=== PATIENT | male | born 1990 | race African-American/Black ===

== ENCOUNTER 2017-02-12 02:02 | Emergency (ER) | payer OTHER ==
[2017-02-12 02:55] LABS: IRF 0.456 Ratio (0.163-0.362); Reticulocyte Count 21.2 % (0.5-1.5)
[2017-02-12 03:10] LABS: Anisocytosis MODERATE=16-30 cells (100X) (0-5/hpf); Band 6 % (5-11); Mean Platelet Volume 7.4 fL (7.4-10.4); Neutrophil 58 % (42-75); Nucleated RBC 4 % (0); Polychromasia SLIGHT = 2-3 cells (100X) (0-2/hpf); Red Blood Cell (RBC) Count 2.61 mill/uL (4.70-6.10); Sickle Cells MODERATE= 6-15 cells (100X) (None Seen); Spherocytes SLIGHT = 1-5 cells (100X) (None Seen); White Blood Cell (WBC) Count 18.8 thou/uL (4.8-10.8)
[2017-02-12 03:12] LABS: ALT (SGPT) 12 U/L (8-55); AST (SGOT) 26 U/L (5-34); Alkaline Phosphatase 90 U/L (40-150); Anion Gap 12 mmol/L (10-20); BUN (Urea Nitrogen) 7 mg/dL (8.9-20.6); Bilirubin, Total 4.7 mg/dL (0.2-1.2); Calc. Creatinine Clearance 0 mL/min (70-130); Carbon Dioxide 22 mmol/L (22-29); Chloride 109 mmol/L (98-107); Estimated GFR-MDRD Greater than 90; Globulin 3.3 g/dL (2.4-3.5); Protein, Total 7.3 g/dL (6.0-8.3)
[2017-02-12] MEDS ORDERED: Ketorolac Tromethamine 30 MG/ML VIAL ONE (03:57)
== END 2017-02-12 05:50 | disposition home or self-care (01) ==
LOC: ERS 02:02
DX: D57.00 Hb-SS disease with crisis, unspecified (principal); Z79.899 Other long term (current) drug therapy
CPT/HCPCS: 36415; 80053; 85025; 85046; 96361; 96374; J1885

== ENCOUNTER 2017-02-26 14:20 | Emergency (ER) | payer OTHER ==
[2017-02-26] MEDS ORDERED: Ketorolac Tromethamine 30 MG/ML VIAL ONE (17:32)
[2017-02-26 17:41] LABS: IRF 0.407 Ratio (0.163-0.362); Reticulocyte Count 15.6 % (0.5-1.5)
[2017-02-26 17:55] LABS: Anisocytosis MODERATE=16-30 cells (100X) (0-5/hpf); Band 3 % (5-11); Elliptocytes SLIGHT = 2-5 cells (100X) (0-1/hpf); Howell Jolly Bodies SLIGHT = 1-2 cells (100X) (None Seen); Mean Platelet Volume 7.9 fL (7.4-10.4); Neutrophil 70 % (42-75); Nucleated RBC 3 % (0); Ovalocytes SLIGHT = 2-5 cells (100X) (0-1/hpf); Poikilocytosis MODERATE=16-30 cells (100X) (0-5/hpf); Polychromasia MODERATE = 3-4 cells (100X) (0-2/hpf); Red Blood Cell (RBC) Count 2.54 mill/uL (4.70-6.10); Sickle Cells SLIGHT = 1-5 cells (100X) (None Seen); Target Cells SLIGHT = 2-5 cells (100X) (0-1/hpf); Tear Drops SLIGHT = 2-5 cells (100X) (0-1/hpf); White Blood Cell (WBC) Count 23.4 thou/uL (4.8-10.8)
[2017-02-26 17:59] LABS: ALT (SGPT) 35 U/L (8-55); AST (SGOT) 42 U/L (5-34); Alkaline Phosphatase 79 U/L (40-150); Anion Gap 13 mmol/L (10-20); BUN (Urea Nitrogen) 7 mg/dL (8.9-20.6); Bilirubin, Total 6.6 mg/dL (0.2-1.2); Calc. Creatinine Clearance 0 mL/min (70-130); Calcium 9.2 mg/dL (7.8-10.44); Carbon Dioxide 21 mmol/L (22-29); Chloride 108 mmol/L (98-107); Estimated GFR-MDRD Greater than 90; Globulin 3.4 g/dL (2.4-3.5); Protein, Total 7.4 g/dL (6.0-8.3)
[2017-02-26] MEDS ORDERED: Morphine 4 MG/ML VIAL ONE (19:20)
--- NOTE | 2017-02-26 20:39 | RAD ---
TWO VIEWS CHEST 02/26/17 HISTORY: Sickle cell crisis. PA and lateral views of the chest is obtained on 02/26/17. Comparison made to previous exam from 05/15/16. Two views chest demonstrates the lungs to be well aerated. No evidence of active intrathoracic diseas e is seen. No evidence of effusions, pneumonia or pneumothorax seen. IMPRESSION: Normal two views chest. POS: [facility]
== END 2017-02-26 19:28 | disposition home or self-care (01) ==
LOC: ERS 14:20
DX: D57.00 Hb-SS disease with crisis, unspecified (principal)
CPT/HCPCS: 36415; 71020; 80053; 85025; 85046; 96361; 96374; 96375; J1885; J2270

== ENCOUNTER 2017-05-07 04:11 | Emergency (ER) | payer OTHER ==
[2017-05-07 04:56] LABS: Hemoglobin 9.2 g/dL (14.0-18.0); Mean Corpuscular HGB CONC 35.1 g/dL (32.0-36.0); Mean Corpuscular Hemoglobin 34.9 pg (27.0-31.0); Mean Corpuscular Volume 99.3 fl (80.0-94.0); Platelet Count 341 thou/uL (130-400); RBC Distribution Width 19.8 % (11.5-14.5); Red Blood Cell (RBC) Count 2.65 mill/uL (4.70-6.10); Reticulocyte Count 15.8 % (0.5-1.5); White Blood Cell (WBC) Count 18.5 thou/uL (4.8-10.8)
[2017-05-07] MEDS ORDERED: Ketorolac Tromethamine 30 MG/ML VIAL ONE (05:02)
[2017-05-07 05:13] LABS: ALT (SGPT) 18 U/L (8-55); AST (SGOT) 30 U/L (5-34); Albumin 4.1 g/dL (3.5-5.0); Alkaline Phosphatase 74 U/L (40-150); Anion Gap 10 mmol/L (10-20); BUN (Urea Nitrogen) 7 mg/dL (8.9-20.6); Bilirubin, Total 5.9 mg/dL (0.2-1.2); CK (CPK) 68 U/L (30-200); Calc. Creatinine Clearance 0 mL/min (70-130); Carbon Dioxide 25 mmol/L (22-29); Chloride 107 mmol/L (98-107); Estimated GFR-MDRD Greater than 90; Globulin 2.9 g/dL (2.4-3.5); Glucose 89 mg/dL (70-105); Potassium 4.4 mmol/L (3.5-5.1); Sodium 138 mmol/L (136-145)
[2017-05-07 05:23] LABS: Anisocytosis MODERATE=16-30 cells (100X) (0-5/hpf); Band 5 % (5-11); Eosinophils 5 % (0-10); Lymphocytes 14 % (21-51); MDiff Complete? YES; Metamyelocyte 2 % (0-0); Monocytes 16 % (0-10); Neutrophil 58 % (42-75); Nucleated RBC 13 % (0); PLT Morphology Comment Appears Adequate; Polychromasia MODERATE = 3-4 cells (100X) (0-2/hpf); Reflex for Review?? YES; Schistocytes SLIGHT = 2-5 cells (100X) (0-1/hpf); Sickle Cells MODERATE= 6-15 cells (100X) (None Seen); Spherocytes SLIGHT = 1-5 cells (100X) (None Seen)
--- NOTE | 2017-05-07 07:47 | RAD ---
ACUTE ABDOMINAL SERIES: DATE: 05/07/17. PROVIDED CLINICAL HISTORY: Back pain. FINDINGS: Comparison is made with the study dated 02/26/17. Cardiac and mediastinal silhouette is within frank l limits. Lungs appear clear. No pleural fluid or pneumothorax apparent. Supine and upright abdominal radiographs demonstrate a nonspecific bowel gas pattern. No evidence of pneumoperitoneum. Rounded radiodensity overlies the right upper quadrant compatible with gallstone, appearing similar to the lumbar spine radiographs of 06/07/16. No radiographically apparent urinary tract calculi. IMPRESSION: 1. No evidence for an acute cardiopulmonary process. 2. Nonspecific bowel gas pattern. POS: [facility]
== END 2017-05-07 07:45 | disposition home or self-care (01) ==
LOC: ERS 04:11
DX: D57.00 Hb-SS disease with crisis, unspecified (principal)
CPT/HCPCS: 36415; 74022; 80053; 82550; 85025; 85046; 85060; 96361; 96374; J1885

== ENCOUNTER 2017-07-07 04:06 | Emergency (ER) | payer OTHER ==
[2017-07-07] MEDS ORDERED: Ibuprofen 800 MG TAB ONE (04:21)
[2017-07-07 05:11] LABS: Bilirubin Negative (Negative); Blood, Urine Negative (Negative); Clarity CLEAR (Clear); Glucose, Urine (Dipstick) Negative (Negative); Leukocyte Trace (Negative); Nitrite Negative (Negative); Protein, Urine (Dipstick) Negative (Neg-Trace); Specific Gravity, Urine 1.014 (1.002-1.036)
[2017-07-07 05:14] LABS: Bacteria/HPF None Seen HPF (None Seen); Hyaline Casts/LPF 0-3 HYALINE CAST LPF (0-3 Hyaline); Pathc Cast-AUWi Flag 0.14 (0-2.49); RBC/HPF 0-3 HPF (0-3); Squamous Epithelial None Seen HPF (0-3)
== END 2017-07-07 05:51 | disposition home or self-care (01) ==
LOC: ERS 04:06
DX: N39.0 Urinary tract infection, site not specified (principal); D57.00 Hb-SS disease with crisis, unspecified
CPT/HCPCS: 81003; 81015; 99283

== ENCOUNTER 2017-10-11 08:29 | Emergency (ER) | payer OTHER ==
[2017-10-11] MEDS ORDERED: Ketorolac Tromethamine 30 MG/ML VIAL ONE (09:03)
[2017-10-11 09:57] LABS: ALT (SGPT) 9 U/L (8-55); AST (SGOT) 32 U/L (5-34); Albumin 4.5 g/dL (3.5-5.0); Alkaline Phosphatase 90 U/L (40-150); Anion Gap 11 mmol/L (10-20); BUN (Urea Nitrogen) 8 mg/dL (8.9-20.6); Calc. Creatinine Clearance 0 mL/min (70-130); Calcium 9.3 mg/dL (7.8-10.44); Carbon Dioxide 25 mmol/L (22-29); Chloride 108 mmol/L (98-107); Estimated GFR-MDRD Greater than 90; Glucose 84 mg/dL (70-105); Potassium 4.7 mmol/L (3.5-5.1); Protein, Total 7.5 g/dL (6.0-8.3); Sodium 139 mmol/L (136-145)
[2017-10-11 10:18] LABS: Eosinophils 8 % (0-10); Hemoglobin 9.7 g/dL (14.0-18.0); Hypochromia SLIGHT = 6-15 cells (100X) (0-5/hpf); Lymphocytes 24 % (21-51); MDiff Complete? YES; Mean Corpuscular HGB CONC 34.5 g/dL (32.0-36.0); Mean Corpuscular Hemoglobin 32.7 pg (27.0-31.0); Mean Corpuscular Volume 94.9 fL (78.0-98.0); Monocytes 12 % (0-10); Neutrophil 54 % (42-75); Platelet Count 517 thou/uL (130-400); Polychromasia SLIGHT = 2-3 cells (100X) (0-2/hpf); RBC Distribution Width 18.5 % (11.5-14.5); Reactive Lymphocytes 2 % (0-10); Red Blood Cell (RBC) Count 2.96 mill/uL (4.70-6.10); White Blood Cell (WBC) Count 11.1 thou/uL (4.8-10.8)
[2017-10-11 10:19] LABS: Reticulocyte Count 7.8 % (0.5-1.5)
--- NOTE | 2017-10-11 11:15 | RAD ---
CHEST 1 VIEW: HISTORY: A 27-year-old male with a history of chest pain, known sickle cell disease. FINDINGS: Heart size is upper range of normal. No evidence for confluent pneumonia, overt edema, or pleural ef fusion. There is some minimal bony sclerosis, evidence for known sickle cell disease. IMPRESSION: Borderline cardiomegaly. No significant acute intrathoracic disease. Stable from prior study of 08/14 05/30. Additionally, no significant change from 05/07/17 study. POS: [facility]
== END 2017-10-11 10:41 | disposition home or self-care (01) ==
LOC: ERS 08:29
DX: M25.511 Pain in right shoulder (principal); M25.512 Pain in left shoulder; Z79.899 Other long term (current) drug therapy
CPT/HCPCS: 71045; 80053; 85025; 85046; 93005; 94760; 96361; 96374; J1885

== ENCOUNTER 2018-04-30 09:50 | Emergency (ER) | payer OTHER | END 2018-04-30 10:50 | disposition left against medical advice (07) | LOC: ERS 09:50 | DX: Z53.21 Procedure and treatment not carried out due to patient leaving prior to being seen by health care provider (principal) ==

== ENCOUNTER 2018-05-24 19:02 | Emergency (ER) | payer OTHER, SELFPAY ==
[2018-05-24] MEDS ORDERED: Ketorolac Tromethamine 60 MG/2 ML VIAL ONE (20:31)
--- NOTE | 2018-05-24 22:44 | RAD ---
THREE VIEWS RIGHT SHOULDER: Date: 05-24-18 History: Right shoulder pain. FINDINGS: The coracoclavicular and acromioclavicular distances are within normal limits. No fracture or disloca tion seen. There is a curvilinear area of sclerosis in the region of the right humeral head probably related to trabecular pattern. No other findings. IMPRESSION: No acute osseous abnormality right shoulder. POS: [facility]
== END 2018-05-24 21:12 | disposition home or self-care (01) ==
LOC: ERS 19:02
DX: M25.512 Pain in left shoulder (principal); D57.1 Sickle-cell disease without crisis; F31.9 Bipolar disorder, unspecified; F20.9 Schizophrenia, unspecified; Z79.899 Other long term (current) drug therapy
CPT/HCPCS: 96372; J1885

== ENCOUNTER 2018-06-02 08:02 | Emergency (ER) | payer SELFPAY ==
[2018-06-02] MEDS ORDERED: Fentanyl 100 MCG/2 ML VIAL ONE (08:57)
[2018-06-02] MEDS ORDERED: Lidocaine 1% (PF) 30 ML VIAL ONE (09:42)
[2018-06-02] MEDS ORDERED: PHENYLEPHRINE HCL SC SCH ×2 (10:00→10:15)
[2018-06-02] MEDS ORDERED: Phenylephrine HCL 10 MG/ML VIAL SC SCH (10:00)
[2018-06-02] MEDS ORDERED: SODIUM CHLORIDE 0.9% SC SCH ×2 (10:00→10:15)
[2018-06-02] MEDS ORDERED: Morphine 4 MG/ML VIAL ONE (10:30)
--- NOTE | 2018-06-03 21:39 | CON ---
DATE OF CONSULTATION: 06/02/2018 CONSULTING: Emergency room. REASON FOR CONSULTATION: Priapism. HISTORY OF PRESENT ILLNESS: Jerardo is a 27-year-old black male whom I have seen in the past for priapisms, who presents to the emergency room today with another episode of priapism. He has a history of sickle cell disease and has had issues with priapisms before. He generally does not get them that often, but occasionally states he will get one approximately once every few years. This morning, he woke up with an erection and it would not go away. Despite trying multiple measures at home, the erection persisted for more than 4 hours and having experienced this before, he knew he needed to come to the emergency room at which time, he has presented to the ER. He states no difficulty with urination or hematuria. He is having a little bit of pain in one of his arms, but otherwise states he is not having any type of pain crisis anywhere else. He does not note being dehydrated or having any other problems recently including shortness of breath. He just has the isolated priapism. He does not take any Viagra or erectile dysfunction medications and states that he has not used any illicit drugs. PAST MEDICAL HISTORY: Sickle cell disease. PAST SURGICAL HISTORY: None. ALLERGIES: PENICILLIN. HOME MEDICATIONS: 1. Morphine. 2. Hydroxyurea. 3. Zofran. FAMILY HISTORY: Negative for heart disease, but there are other reported extended family members who potentially either have sickle cell trait or sickle cell disease. SOCIAL HISTORY: The patient denies tobacco use. Does use marijuana on occasion. Denies alcohol abuse. REVIEW OF SYSTEMS: A 12-point review of systems is entirely negative other than the patient's reported left arm pain, which is mild and his priapism. PHYSICAL EXAMINATION: VITAL SIGNS: Temperature 97.8, pulse 68, respirations 18, blood pressure 121/74, saturations 95% on room air. GENERAL: No apparent distress, communicative, answering questions appropriately. Appears stated age. HEENT: Normocephalic, atraumatic. Pupils are symmetric and round. Sclerae are nonicteric. Moist mucous membranes. Trachea is midline. CARDIOVASCULAR: Regular rate and rhythm. Normal S1 and S2. Symmetric pulses. CHEST: No increased work of breathing. Symmetric expansion of lungs, clear anteriorly. ABDOMEN: Soft, nontender, and nondistended. No organomegaly. Positive bowel sounds. No guarding or suprapubic tenderness. : The patient has an erect penis. The glans is flaccid, but the corpora hard. There is tenderness along the entire corpora. There are no rashes or lesions. Testes are bilaterally descended. Scrotum is otherwise nonfocal. Rectal exam is deferred. EXTREMITIES: No clubbing, cyanosis, or edema. MUSCULOSKELETAL: No obvious joint deformities or joint erythema noted. Full range of motion. NEUROLOGIC: Cranial nerves 2 through 12 grossly intact. No focal or sensory motor deficits identified. SKIN: Warm and dry. No rashes, lesions. Good turgor. PSYCHIATRIC: Alert and oriented x3. Appropriate mood and affect. LABORATORY DATA: No labs. IMAGING: No imaging. DESCRIPTION OF PROCEDURE: After consent with the patient, the patient's penis was prepped with a ChloraPrep. A circumferential ring block was performed with 8 mL of 1% lidocaine plain. Injection was also done down to the corpus cavernosum of the area where we would insert the needle. A 14-gauge needle was inserted on the lateral right aspect of the penis toward the base until it was centered approximately in the middle of the corpus cavernosum on the right. The needle was removed leaving the Jelco catheter in place. There was immediate release of pressurized dark venous blood. There was immediate detumescence. The penis was compressed to completely drain all of the blood out of the penis. The corpora were then irrigated with approximately 15 mL of normal saline done in about 5 mL increments squeezing out the saline and blood intermittently until the blood was again bright red indicating that all the venous blood had been removed. At this point, approximately 4 mL total of 1% phenylephrine diluted 1:10 for a final concentration of 1:200 was used in 1 mL increments administered over to the course of approximately 15-20 minutes while monitoring blood pressure for vasoconstriction of the central penile arteries. This resulted in complete detumescence of the penis. The Jelco catheter was then removed and the penis was dressed and taped down to the patient's abdomen in the anatomic position. I recommended the patient wait for approximately 1-2 hours to ensure that he did not have a recurrence of an erection. Unfortunately, the patient left AMA while I was not present. ASSESSMENT AND PLAN: A 27-year-old black male with a sickle cell induced priapism, who has left [place] after his corporal irrigation and detumescence. He did have a complete resolution of his priapism at the time that I had last seen him, but I was not able to check his erection prior to him leaving [place]. He does not have any scheduled followup with me, but probably does not require followup as he does not get priapisms very often. Prior to him leaving, I did recommend and advised him that he should stay well hydrated to avoid worsening sickle cell episodes that may lead to further priapisms. I also warned him that recurrent episodes of priapism can lead to erectile dysfunction, which he is fully aware of. As of now, he can follow up with me on a p.r.n. basis. Job ID: [id number]
== END 2018-06-02 12:04 | disposition left against medical advice (07) ==
LOC: ERS 08:02
DX: N48.30 Priapism, unspecified (principal); F31.9 Bipolar disorder, unspecified; F20.9 Schizophrenia, unspecified; D57.20 Sickle-cell/Hb-C disease without crisis; Z79.899 Other long term (current) drug therapy
CPT/HCPCS: 54220; 96361; 96374; 96375; J2001; J2270; J2370; J3010; J7050

== ENCOUNTER 2018-07-19 01:14 | Emergency (ER) | payer OTHER, SELFPAY ==
[2018-07-19 02:00] LABS: Reticulocyte Count 16.9 % (0.5-1.5)
[2018-07-19 02:06] LABS: Mean Corpuscular HGB CONC 34.6 g/dL (32.0-36.0); Mean Corpuscular Hemoglobin 31.3 pg (27.0-31.0); Mean Corpuscular Volume 90.4 fL (78.0-98.0); Mean Platelet Volume 7.9 fL (7.4-10.4); Platelet Count 403 thou/uL (130-400); RBC Distribution Width 21.5 % (11.5-14.5); Red Blood Cell (RBC) Count 2.24 mill/uL (4.70-6.10)
[2018-07-19] MEDS ORDERED: Acetaminophen 500 MG TAB ONE (02:08)
[2018-07-19 02:22] LABS: ALT (SGPT) 12 U/L (8-55); AST (SGOT) 23 U/L (5-34); Albumin 4.2 g/dL (3.5-5.0); Alkaline Phosphatase 86 U/L (40-150); Anion Gap 13 mmol/L (10-20); BUN (Urea Nitrogen) 13 mg/dL (8.9-20.6); Bilirubin, Total 4.8 mg/dL (0.2-1.2); Calc. Creatinine Clearance 0 mL/min (70-130); Calcium 9.2 mg/dL (7.8-10.44); Carbon Dioxide 24 mmol/L (22-29); Chloride 102 mmol/L (98-107); Estimated GFR-MDRD Greater than 90; Globulin 2.9 g/dL (2.4-3.5); Glucose 117 mg/dL (70-105); Protein, Total 7.1 g/dL (6.0-8.3); Sodium 135 mmol/L (136-145)
[2018-07-19 02:32] LABS: Band 7 % (5-11); Hypochromia SLIGHT = 6-15 cells (100X) (0-5/hpf); Lymphocytes 10 % (21-51); MDiff Complete? YES; Monocytes 9 % (0-10); Neutrophil 74 % (42-75); Platelet Morphology Comment Appears Adequate; Polychromasia SLIGHT = 2-3 cells (100X) (0-2/hpf); Sickle Cells SLIGHT = 1-5 cells (100X) (None Seen); Target Cells SLIGHT = 2-5 cells (100X) (0-1/hpf); White Blood Cell (WBC) Count 23.6 thou/uL (4.8-10.8)
--- NOTE | 2018-07-19 07:43 | RAD ---
Left knee 4 views HISTORY: Knee pain. FINDINGS: Joint spaces are preserved. No acute fracture, dislocation, or fluid distention of the supr apatellar bursa. IMPRESSION: No acute osseous abnormalities are demonstrated.
--- NOTE | 2018-07-19 07:43 | RAD ---
Right knee 4 views HISTORY: Right knee pain. FINDINGS: Joint spaces are preserved. No acute fracture, dislocation, or fluid distention of the supr apatellar bursa. IMPRESSION: No acute osseous abnormalities are demonstrated.
== END 2018-07-19 03:03 | disposition home or self-care (01) ==
LOC: ERS 01:14
DX: M25.561 Pain in right knee (principal); M25.562 Pain in left knee; D64.9 Anemia, unspecified; D72.829 Elevated white blood cell count, unspecified; F31.9 Bipolar disorder, unspecified; F20.9 Schizophrenia, unspecified; Z79.899 Other long term (current) drug therapy
CPT/HCPCS: 36415; 80053; 85025; 85046; 94760

== ENCOUNTER 2019-06-23 02:04 | Emergency (ER) | payer SELFPAY ==
[2019-06-23] MEDS ORDERED: Morphine 2 MG/ML SYRINGE ONE (04:09)
[2019-06-23] MEDS ORDERED: Morphine 4 MG/ML VIAL ONE (04:10)
[2019-06-23] MEDS ORDERED: Ketorolac Tromethamine 30 MG/ML VIAL ONE ×2 (04:10→04:51)
[2019-06-23 04:44] LABS: Band 1 % (5-11); Eosinophils 7 % (0-10); Lymphocytes 25 % (21-51); MDiff Complete? YES; Mean Corpuscular HGB CONC 35.8 g/dL (32.0-36.0); Mean Corpuscular Hemoglobin 37.5 pg (27.0-31.0); Mean Platelet Volume 8.1 fL (7.4-10.4); Monocytes 10 % (0-10); Neutrophil 57 % (42-75); Nucleated RBC 1 % (0); Platelet Count 304 thou/uL (130-400); Platelet Morphology Comment Appears Adequate; RBC Distribution Width 19.9 % (11.5-14.5); Red Blood Cell (RBC) Count 2.65 mill/uL (4.70-6.10); Reflex for Review?? NO; Sickle Cells MODERATE= 6-15 cells (100X) (None Seen); White Blood Cell (WBC) Count 31.3 thou/uL (4.8-10.8)
[2019-06-23 04:47] LABS: ALT (SGPT) 10 U/L (8-55); AST (SGOT) 22 U/L (5-34); Albumin 3.9 g/dL (3.5-5.0); Alkaline Phosphatase 65 U/L (40-110); Anion Gap 9 mmol/L (10-20); BUN (Urea Nitrogen) 6 mg/dL (8.9-20.6); Bilirubin, Total 6.6 mg/dL (0.2-1.2); Calc. Creatinine Clearance 0 mL/min (70-130); Calcium 8.5 mg/dL (7.8-10.44); Carbon Dioxide 25 mmol/L (22-29); Chloride 108 mmol/L (98-107); Estimated GFR-MDRD Greater than 90; Globulin 2.8 g/dL (2.4-3.5); Glucose 89 mg/dL (70-105); Lipase 14 U/L (8-78); Potassium 3.4 mmol/L (3.5-5.1); Protein, Total 6.7 g/dL (6.0-8.3); Sodium 139 mmol/L (136-145)
[2019-06-23] MEDS ORDERED: Acetaminophen 500 MG TAB ONE ×2 (04:51→04:56)
[2019-06-23 04:59] LABS: Bilirubin Negative (Negative); Blood, Urine Negative (Negative); Clarity Clear (Clear); Glucose, Urine (Dipstick) Normal (Negative); Leukocyte Negative Leu/uL (Negative); Nitrite Negative (Negative); Protein, Urine (Dipstick) 10 mg/dL (Neg-Trace); Urobilinogen 3 mg/dL (Less than 2)
[2019-06-23 05:09] LABS: Reticulocyte Count 14.1 % (0.5-1.5)
[2019-06-23 05:26] LABS: Bilirubin, Direct 0.5 mg/dL (0.1-0.3); Bilirubin, Total 6.5 mg/dL (0.2-1.2)
== END 2019-06-23 06:49 | disposition home or self-care (01) ==
LOC: ERS 02:04
DX: D57.00 Hb-SS disease with crisis, unspecified (principal); M79.652 Pain in left thigh; M79.651 Pain in right thigh; E80.6 Other disorders of bilirubin metabolism; F31.9 Bipolar disorder, unspecified; F20.9 Schizophrenia, unspecified; Z79.899 Other long term (current) drug therapy
CPT/HCPCS: 36415; 80053; 81003; 82247; 83690; 85025; 85046; 96360; 96372; J1885; J2270

== ENCOUNTER 2019-07-08 23:14 | Observation (INO) | payer SELFPAY ==
[2019-07-08] MEDS ORDERED: HYDROcodone/Acetaminophen 5/325 mg Tablet ONE (23:36)
--- NOTE | 2019-07-08 23:54 | RAD ---
Exam: Chest one view HISTORY:Unbearable pain. Comparison: 11/01/2017 FINDINGS: Cardiac silhouette:Cardiomegaly. Aorta: Unremarkable Pulmonary vessels: Normal Costophrenic angles: Clear LUNGS: No masses or consolidation. Pneumothorax: None Osseous abnormalities: None IMPRESSION: Cardiomegaly, without evidence of congestive heart failure.
[2019-07-09 00:15] LABS: Hemoglobin 10.8 g/dL (14.0-18.0); Mean Corpuscular HGB CONC 34.8 g/dL (32.0-36.0); Mean Corpuscular Hemoglobin 35.3 pg (27.0-31.0); RBC Distribution Width 20.1 % (11.5-14.5); Red Blood Cell (RBC) Count 3.07 mill/uL (4.70-6.10)
[2019-07-09 00:19] LABS: ALT (SGPT) 14 U/L (8-55); AST (SGOT) 25 U/L (5-34); Albumin 4.3 g/dL (3.5-5.0); Alkaline Phosphatase 88 U/L (40-110); Anion Gap 13 mmol/L (10-20); BUN (Urea Nitrogen) 8 mg/dL (8.9-20.6); Bilirubin, Total 5.6 mg/dL (0.2-1.2); Calc. Creatinine Clearance 0 mL/min (70-130); Carbon Dioxide 24 mmol/L (22-29); Chloride 108 mmol/L (98-107); Estimated GFR-MDRD Greater than 90; Globulin 3.2 g/dL (2.4-3.5); Glucose 98 mg/dL (70-105); Potassium 3.9 mmol/L (3.5-5.1); Protein, Total 7.5 g/dL (6.0-8.3); Sodium 141 mmol/L (136-145)
[2019-07-09 00:21] LABS: Anisocytosis MODERATE=16-30 cells (100X) (0-5/hpf); Band 4 % (5-11); Elliptocytes SLIGHT = 2-5 cells (100X) (0-1/hpf); Eosinophils 1 % (0-10); Lymphocytes 21 % (21-51); MDiff Complete? YES; Mean Platelet Volume 7.8 fL (7.4-10.4); Monocytes 11 % (0-10); Neutrophil 63 % (42-75); Platelet Count 394 thou/uL (130-400); Sickle Cells SLIGHT = 1-5 cells (100X) (None Seen); White Blood Cell (WBC) Count 20.7 thou/uL (4.8-10.8)
[2019-07-09] MEDS ORDERED: Morphine 4 MG/ML VIAL ONE ×2 (00:22→00:54)
[2019-07-09] MEDS ORDERED: Ketorolac Tromethamine 30 MG/ML VIAL ONE (00:27)
[2019-07-09] MEDS ORDERED: Ondansetron PF 4 MG/2 ML Vial IVP PRN ×2 (02:37→02:48)
[2019-07-09] MEDS ORDERED: Acetaminophen 325 MG TAB PO PRN ×2 (02:37→02:48)
[2019-07-09] MEDS ORDERED: Ondansetron ODT 4 MG TAB PO PRN (02:37)
--- NOTE | 2019-07-09 02:46 | PDOC.HHP ---
Hospitalist HPI - History of Present Illness pain History of Present Illness: Case of an 28y/o male with pmhx of sickle cell disease who comes to hospital due to pain. patient refers he was on his usual state of heatlh until 3 weeks ago when she started to have body pains. he had couple of ed visit in these last weeks with same symptoms but refers today has been the worse day refering 10/10 pain in the back and abdomen associated with nause but no vomiting. pt denies fever chills sob or hematuria. does refers similar episode in the past with sickle cell crisis Hospitalist ROS - Review of Systems All other systems reviewed; all pertinent +/- noted in HPI/Subj Hospitalist History - Past Medical History Other Medical History: sickle cell disease - Past Surgical History Past Surgical History: reports: no pertinent history - Family History Other Family History: mother - sickle cell trait father - sickle cell trait - Social History Smoking Status: Never smoker Alcohol: reports: None Drugs: reports: none Living Situation: With Family Activity level: independent ambulation - Exam General Appearance: awake alert Eye: PERRL, anicteric sclera ENT: normocephalic atraumatic, no oropharyngeal lesions Neck: supple, symmetric, no JVD Heart: RRR, no murmur, no gallops, no rubs Respiratory: CTAB, no wheezes, no rales, no ronchi Gastrointestinal: soft, non-tender, non-distended, normal bowel sounds Extremities: no cyanosis, no clubbing, no edema Skin: normal turgor, no lesions, no rashes Neurological: cranial nerve grossly intact, normal sensation to touch, no weakness Musculoskeletal: normal tone, normal strength, no muscle wasting Psychiatric: normal affect, normal behavior, A&O x 3 Hospitalist Results - Labs Result Diagrams: 07/08/19 23:46 07/08/19 23:46 Lab results: WBC 20.7 thou/uL (4.8-10.8) H 07/08/19 23:46 Hgb 10.8 g/dL (14.0-18.0) L 07/08/19 23:46 Hct 31.1 % (42.0-52.0) L 07/08/19 23:46 MCV 102.0 fL (78.0-98.0) H 07/08/19 23:46 Plt Count 394 thou/uL (130-400) 04/24/20 23:46 Band Neuts % (Manual) 4 % (5-11) L 07/08/19 23:46 Sodium 141 mmol/L (136-145) 07/08/19 23:46 Potassium 3.9 mmol/L (3.5-5.1) 07/08/19 23:46 Chloride 108 mmol/L (98-107) H 07/08/19 23:46 Carbon Dioxide 24 mmol/L (22-29) 07/08/19 23:46 BUN 8 mg/dL (8.9-20.6) L 07/08/19 23:46 Creatinine 0.70 mg/dL (0.7-1.3) 07/08/19 23:46 Glucose 98 mg/dL (70-105) 07/08/19 23:46 Calcium 9.0 mg/dL (7.8-10.44) 07/08/19 23:46 Total Bilirubin 5.6 mg/dL (0.2-1.2) H 07/08/19 23:46 AST 25 U/L (5-34) 07/08/19 23:46 ALT 14 U/L (8-55) 07/08/19 23:46 Alkaline Phosphatase 88 U/L (40-110) 07/08/19 23:46 Serum Total Protein 7.5 g/dL (6.0-8.3) 07/08/19 23:46 Albumin 4.3 g/dL (3.5-5.0) 07/08/19 23:46 Hospitalist H&P A/P - Plan Plan: sickle cell crisis - patient in intractable pain, has hx of sickle cell disease. cxr and u/a wnl patient denies any fever chill chest pain or sob. will provide ivfs o2 supplementation and pain management
[2019-07-09] MEDS ORDERED: HYDROcodone/Acetaminophen 5/325 mg Tablet PO PRN ×2 (02:48)
[2019-07-09] MEDS ORDERED: Ondansetron ODT 4 MG TAB SL PRN (02:48)
[2019-07-09] MEDS ORDERED: Sodium Chloride 0.9% 1,000 ML IV SCH (02:48)
[2019-07-09 02:57] VITALS: BMI 21.4
[2019-07-09] MEDS: Morphine 4 MG/ML VIAL SLOW IVP PRN ×5 (03:21→21:03)
[2019-07-09] MEDS: Sodium Chloride 0.9% 1,000 ML IV SCH ×3 (03:22→21:05)
[2019-07-09] MEDS: HYDROcodone/Acetaminophen 10/325 mg Tablet PO PRN (04:32)
[2019-07-09 05:44] LABS: ALT (SGPT) 32 U/L (8-55); AST (SGOT) 50 U/L (5-34); Albumin 4.3 g/dL (3.5-5.0); Alkaline Phosphatase 92 U/L (40-110); Anion Gap 11 mmol/L (10-20); BUN (Urea Nitrogen) 5 mg/dL (8.9-20.6); Bilirubin, Total 5.5 mg/dL (0.2-1.2); Calc. Creatinine Clearance 148 mL/min (70-130); Calcium 8.8 mg/dL (7.8-10.44); Carbon Dioxide 24 mmol/L (22-29); Chloride 108 mmol/L (98-107); Estimated GFR-MDRD Greater than 90; Globulin 3.1 g/dL (2.4-3.5); Glucose 108 mg/dL (70-105); Potassium 3.8 mmol/L (3.5-5.1); Protein, Total 7.4 g/dL (6.0-8.3); Sodium 139 mmol/L (136-145)
[2019-07-09 05:54] LABS: Hemoglobin 9.9 g/dL (14.0-18.0); Mean Corpuscular HGB CONC 33.3 g/dL (32.0-36.0); Mean Corpuscular Hemoglobin 34.9 pg (27.0-31.0); Mean Platelet Volume 8.4 fL (7.4-10.4); Platelet Count 323 thou/uL (130-400); RBC Distribution Width 19.5 % (11.5-14.5); Red Blood Cell (RBC) Count 2.83 mill/uL (4.70-6.10)
[2019-07-09 06:24] LABS: Anisocytosis MODERATE=16-30 cells (100X) (0-5/hpf); Band 5 % (5-11); Elliptocytes SLIGHT = 2-5 cells (100X) (0-1/hpf); Large Platelets SLIGHT; Lymphocytes 25 % (21-51); MDiff Complete? YES; Macrocytosis SLIGHT = 6-15 cells (100X) (0-5/hpf); Monocytes 8 % (0-10); Neutrophil 61 % (42-75); Nucleated RBC 5 % (0); Polychromasia SLIGHT = 2-3 cells (100X) (0-2/hpf); Sickle Cells SLIGHT = 1-5 cells (100X) (None Seen); Target Cells SLIGHT = 2-5 cells (100X) (0-1/hpf)
[2019-07-09] MEDS: Enoxaparin Sodium 40 MG/0.4 ML SYRINGE SC SCH (07:59)
--- NOTE | 2019-07-09 16:55 | PDOC.HOSPP ---
- Subjective Encounter Date: 07/09/19 Encounter Time: 16:53 Subjective: Mr. Steiner was seen today in follow-up of sickle cell crisis. He continues to have significant pain. He rates it a 8-9/10. It is mainly on his left hip and left side. He denies chest pain or shortness of breath. - Objective Vital Signs & Weight: Vital Signs (12 hours) Temp Pulse Resp BP Pulse Ox 07/09/19 15:30 98.4 F 66 16 111/56 L 99 07/09/19 11:02 97.9 F 61 16 117/70 98 07/09/19 07:44 97.7 F 55 L 16 131/64 100 07/09/19 05:00 97.7 F 58 L 18 138/73 98 Weight Weight 141 lb I&O: 07/08/19 07/09/19 07/10/19 06:59 06:59 06:59 Output Total 800 Balance -800 Result Diagrams: 07/09/19 05:11 07/09/19 05:11 Hospitalist ROS - Medication Medications: Active Medications Generic Name Dose Route Start Last Admin Trade Name Freq PRN Reason Stop Dose Admin Hydrocodone Bitart/Acetaminophen 2 tab 07/09/19 02:37 07/09/19 04:32 [place] 10/325 PO 2 tab Q4H PRN Administration Severe Pain (7-10) Enoxaparin Sodium 40 mg 07/09/19 09:00 07/09/19 07:59 Lovenox SC 40 mg 0900 LILLY Administration Sodium Chloride 1,000 mls @ 100 mls/hr 07/09/19 03:00 07/09/19 07:56 Normal Saline 0.9% IV 1,000 mls .Q10H LILLY Administration Morphine Sulfate 4 mg 07/09/19 02:37 07/09/19 12:31 Morphine SLOW IVP 4 mg Q4H PRN Administration BREAKTHRU PAIN - Exam Eye: PERRL, anicteric sclera Heart: RRR, no murmur, no gallops, no rubs, normal peripheral pulses Respiratory: CTAB, no wheezes, no rales, no ronchi, normal chest expansion, no tachypnea Gastrointestinal: soft, non-tender, non-distended, normal bowel sounds, no palpable masses, no hepatomegaly, no splenomegaly Extremities: no cyanosis, no edema Hosp A/P (1) Sickle cell anemia with crisis Code(s): D57.00 - HB-SS DISEASE WITH CRISIS, UNSPECIFIED Status: Acute - Plan * Sickle cell crisis- will continue with hydration, and pain control * Will continue to monitor his H&H and transfuse if falls below 7 ( he does not know what level he normally gets transfused) * Re-start Hydroxyurea, and Folic acid * Currently no obvious source sign of infection
[2019-07-09] MEDS: Hydroxyurea 500 MG CAP PO SCH (21:02)
[2019-07-10] MEDS: Morphine 4 MG/ML VIAL SLOW IVP PRN ×3 (00:48→10:05)
[2019-07-10] MEDS: HYDROcodone/Acetaminophen 10/325 mg Tablet PO PRN (03:57)
[2019-07-10] MEDS: Sodium Chloride 0.9% 1,000 ML IV SCH ×2 (04:59→10:07)
[2019-07-10 05:31] LABS: Reticulocyte Count 11.8 % (0.5-1.5)
[2019-07-10 05:55] LABS: Hemoglobin 8.9 g/dL (14.0-18.0); Mean Corpuscular Hemoglobin 34.7 pg (27.0-31.0); Mean Platelet Volume 7.9 fL (7.4-10.4); Platelet Count 305 thou/uL (130-400); RBC Distribution Width 17.6 % (11.5-14.5); Red Blood Cell (RBC) Count 2.56 mill/uL (4.70-6.10)
[2019-07-10 06:03] LABS: Anisocytosis SLIGHT = 6-15 cells (100X) (0-5/hpf); Band 6 % (5-11); Eosinophils 1 % (0-10); Hemoglobin C Crystals SLIGHT (None Seen); Lymphocytes 10 % (21-51); MDiff Complete? YES; Metamyelocyte 1 % (0-0); Monocytes 12 % (0-10); Neutrophil 70 % (42-75); Nucleated RBC 6 % (0); Polychromasia MODERATE = 3-4 cells (100X) (0-2/hpf); Target Cells SLIGHT = 2-5 cells (100X) (0-1/hpf); White Blood Cell (WBC) Count 15.5 thou/uL (4.8-10.8)
[2019-07-10 07:52] VITALS: BP 103/61; TEMP 97.9
[2019-07-10] MEDS ORDERED: Folic Acid 1 MG TAB PO SCH (09:00)
[2019-07-10] MEDS: Enoxaparin Sodium 40 MG/0.4 ML SYRINGE SC SCH (10:06)
[2019-07-10] MEDS: Hydroxyurea 500 MG CAP PO SCH (10:06)
--- NOTE | 2019-07-10 10:39 | PDOC.HOSPP ---
- Subjective Encounter Date: 07/10/19 Encounter Time: 10:37 Subjective: Mr. Steiner was seen today in follow-up of sickle cell crisis. He says he feels much better, and " wants to get out of here this afternoon". - Objective Vital Signs & Weight: Vital Signs (12 hours) Temp Pulse Resp BP Pulse Ox 07/10/19 07:49 97.9 F 61 16 103/61 99 07/10/19 05:01 98.3 F 63 16 106/55 L 99 07/10/19 00:16 98 F 75 16 105/61 94 L Weight Weight 141 lb I&O: 07/09/19 07/10/19 07/11/19 06:59 06:59 06:59 Intake Total 1550 Output Total 1800 300 Balance -250 -300 Result Diagrams: 07/10/19 04:53 07/09/19 05:11 Hospitalist ROS - Medication Medications: Active Medications Generic Name Dose Route Start Last Admin Trade Name Freq PRN Reason Stop Dose Admin Hydrocodone Bitart/Acetaminophen 2 tab 07/09/19 02:37 07/10/19 03:57 [place] 10/325 PO 2 tab Q4H PRN Administration Severe Pain (7-10) Enoxaparin Sodium 40 mg 07/09/19 09:00 07/10/19 10:06 Lovenox SC 40 mg 0900 LILLY Administration Folic Acid 1 mg 07/10/19 09:00 07/10/19 10:07 Folvite PO 1 mg DAILY LILLY Administration Hydroxyurea 500 mg 07/09/19 21:00 07/10/19 10:06 Hydrea PO 500 mg BID LILLY Administration Sodium Chloride 1,000 mls @ 100 mls/hr 07/09/19 03:00 07/10/19 10:07 Normal Saline 0.9% IV 1,000 mls .Q10H LILLY Administration Morphine Sulfate 4 mg 07/09/19 02:37 07/10/19 10:05 Morphine SLOW IVP 4 mg Q4H PRN Administration BREAKTHRU PAIN - Exam Eye: PERRL Heart: RRR, no murmur, no gallops, no rubs, normal peripheral pulses Respiratory: CTAB, no wheezes, no rales, no ronchi, normal chest expansion, no tachypnea, normal percussion Gastrointestinal: soft, non-tender, non-distended, normal bowel sounds, no palpable masses, no hepatomegaly Extremities: no cyanosis, no edema Hosp A/P (1) Sickle cell anemia with crisis Code(s): D57.00 - HB-SS DISEASE WITH CRISIS, UNSPECIFIED Status: Acute - Plan * Sickle cell crisis-patient feels subjectively improved * His H&H has remained stable * No fever, and WBC count is trending down * Stable for discharge home.
--- NOTE | 2019-07-11 01:29 | DIS ---
DATE OF ADMISSION: 07/09/2019 DATE OF DISCHARGE: 07/10/2019 The patient currently does not have a primary care physician. DISCHARGE DISPOSITION: Home. DISCHARGE DIAGNOSIS: Acute sickle cell crisis. DISCHARGE MEDICATIONS: Include: 1. Folic acid 1 mg daily. 2. Hydroxyurea 500 mg p.o. b.i.d. 3. Zofran 4 mg q.6 as needed. 4. Ibuprofen 800 mg q.6 as needed. CODE STATUS: Full code. ALLERGIES: TO AMOXICILLIN AND PENICILLIN. HOSPITAL COURSE: Mr. Steiner is a pleasant 28-year-old gentleman, who was admitted to the hospital due to painful sickle cell crisis. He was evaluated in the ER. There was no evidence of any obvious infection. Chest x-ray was normal. There was no evidence of fever. He was admitted and started on IV fluids as well as IV analgesia. Over the course of the next day, the patient was feeling much improved. He was noted to have an elevated white blood cell count, which began to improve during the hospital stay. His reticulocyte count went from 14 down to 11, and his hemoglobin dropped on only slightly from 10.8 to 8.9. Since he was feeling much better without signs of infection, he will be released home. He says that he recently got out of residential and has not seen a primary care doctor. He plans to go to the [facility], and we will also be restarting the hydroxyurea and the folic acid. Job ID: [id number]
== END 2019-07-10 12:18 | disposition home or self-care (01) ==
LOC: ERS 23:14 → SURG A 07-09 01:44
PROVIDERS: ADMIT Internal Medicine; ATTEND Internal Medicine
DX: D57.00 Hb-SS disease with crisis, unspecified (principal); Z88.0 Allergy status to penicillin
CPT/HCPCS: 36415; 71045; 80053; 85025; 85046; 94760; 96361; 96372; 96374; 96375; 96376; G0378; J1650; J1885; J2270

== ENCOUNTER 2019-07-11 05:19 | Emergency (ER) | payer SELFPAY ==
[2019-07-11] MEDS ORDERED: Ketorolac Tromethamine 30 MG/ML VIAL ONE (05:30)
[2019-07-11] MEDS ORDERED: traMADol HCl 50 MG TAB ONE (05:36)
[2019-07-11 06:15] LABS: Hemoglobin 9.4 g/dL (14.0-18.0); Mean Corpuscular HGB CONC 35.7 g/dL (32.0-36.0); Mean Corpuscular Hemoglobin 35.6 pg (27.0-31.0); Mean Corpuscular Volume 99.7 fL (78.0-98.0); Mean Platelet Volume 8.1 fL (7.4-10.4); Platelet Count 339 thou/uL (130-400); RBC Distribution Width 19.8 % (11.5-14.5); Red Blood Cell (RBC) Count 2.63 mill/uL (4.70-6.10)
[2019-07-11 06:18] LABS: Reticulocyte Count 9.2 % (0.5-1.5)
[2019-07-11 06:44] LABS: Anisocytosis MODERATE=16-30 cells (100X) (0-5/hpf); Band 5 % (5-11); Lymphocytes 8 % (21-51); MDiff Complete? YES; Monocytes 14 % (0-10); Neutrophil 73 % (42-75); Nucleated RBC 2 % (0); Polychromasia SLIGHT = 2-3 cells (100X) (0-2/hpf); Sickle Cells MODERATE= 6-15 cells (100X) (None Seen); White Blood Cell (WBC) Count 18.1 thou/uL (4.8-10.8)
--- NOTE | 2019-07-11 09:23 | RAD ---
PORTABLE CHEST: DATE: 07/11/2019. PROVIDED CLINICAL HISTORY: Body aches. FINDINGS: Comparison 07/08/2019. The cardiac silhouette appears prominent, likely at least partially on the bas is of portable technique. There is no focal consolidation, pleural fluid, or pneumothorax apparent. IMPRESSION: No evidence for an acute cardiopulmonary process. POS: [facility]
== END 2019-07-11 07:30 | disposition home or self-care (01) ==
LOC: ERS 05:19
DX: D57.00 Hb-SS disease with crisis, unspecified (principal); F20.9 Schizophrenia, unspecified; F31.9 Bipolar disorder, unspecified; Z79.899 Other long term (current) drug therapy
CPT/HCPCS: 36415; 71045; 85025; 85046; 96372; J1885

== ENCOUNTER 2019-07-26 08:11 | Emergency (ER) | payer OTHER, SELFPAY ==
[2019-07-26] MEDS ORDERED: Ketorolac Tromethamine 30 MG/ML VIAL ONE (08:49)
[2019-07-26 09:32] LABS: Reticulocyte Count 10.8 % (0.5-1.5)
[2019-07-26 09:34] LABS: Hemoglobin 9.3 g/dL (14.0-18.0); Mean Corpuscular HGB CONC 34.5 g/dL (32.0-36.0); Mean Corpuscular Hemoglobin 35.4 pg (27.0-31.0); Mean Platelet Volume 7.4 fL (7.4-10.4); Platelet Count 445 thou/uL (130-400); RBC Distribution Width 19.3 % (11.5-14.5); Red Blood Cell (RBC) Count 2.64 mill/uL (4.70-6.10); White Blood Cell (WBC) Count 17.3 thou/uL (4.8-10.8)
[2019-07-26] MEDS ORDERED: HYDROcodone/Acetaminophen 5/325 mg Tablet ONE (09:48)
[2019-07-26 09:51] LABS: ALT (SGPT) 12 U/L (8-55); AST (SGOT) 18 U/L (5-34); Albumin 3.7 g/dL (3.5-5.0); Alkaline Phosphatase 78 U/L (40-110); Anion Gap 10 mmol/L (10-20); BUN (Urea Nitrogen) 7 mg/dL (8.9-20.6); Bilirubin, Total 5.5 mg/dL (0.2-1.2); Calc. Creatinine Clearance 0 mL/min (70-130); Calcium 8.6 mg/dL (7.8-10.44); Carbon Dioxide 24 mmol/L (22-29); Chloride 109 mmol/L (98-107); Estimated GFR-MDRD Greater than 90; Globulin 2.8 g/dL (2.4-3.5); Glucose 88 mg/dL (70-105); Protein, Total 6.5 g/dL (6.0-8.3); Sodium 139 mmol/L (136-145)
[2019-07-26 09:56] LABS: Band 3 % (5-11); Eosinophils 3 % (0-10); Hypochromia SLIGHT = 6-15 cells (100X) (0-5/hpf); Lymphocytes 19 % (21-51); MDiff Complete? YES; Macrocytosis SLIGHT = 6-15 cells (100X) (0-5/hpf); Monocytes 17 % (0-10); Neutrophil 58 % (42-75); Nucleated RBC 1 % (0); Platelet Morphology Comment Appears Increased; Polychromasia MARKED = >4 cells (100X) (0-2/hpf); Sickle Cells SLIGHT = 1-5 cells (100X) (None Seen); Target Cells SLIGHT = 2-5 cells (100X) (0-1/hpf)
== END 2019-07-26 10:08 | disposition home or self-care (01) ==
LOC: ERS 08:11
DX: M79.605 Pain in left leg (principal); F31.9 Bipolar disorder, unspecified; F20.9 Schizophrenia, unspecified; F17.290 Nicotine dependence, other tobacco product, uncomplicated
CPT/HCPCS: 36415; 80053; 85025; 85046; 96372; 99283; J1885

== ENCOUNTER 2019-08-14 04:13 | Inpatient (IN) | payer SELFPAY ==
[2019-08-14] MEDS ORDERED: PHENYLEPHRINE-NS 100 MCG/ML 10 ML SYRINGE FS SCH ×2 (04:30→09:15)
[2019-08-14 06:24] LABS: Reticulocyte Count 7.6 % (0.5-1.5)
[2019-08-14 06:27] LABS: #Basophils 0.1 thou/uL (0.0-0.2); #Eosinphils 0.6 thou/uL (0.0-0.7); #Lymphocytes 2.9 thou/uL (1.20-3.40); #Monocytes 2.3 thou/uL (0.11-0.59); #Neutrophils 13.6 thou/uL (1.40-6.50); %Basophils 0.8 % (0.0-1.0); %Eosinophils 2.9 % (0.0-10.0); %Lymphocytes 14.9 % (21.0-51.0); %Monocytes 11.7 % (0.0-10.0); %Neutrophils 69.8 % (42.0-75.0); Hemoglobin 11.8 g/dL (14.0-18.0); Mean Corpuscular HGB CONC 35.8 g/dL (32.0-36.0); Mean Corpuscular Hemoglobin 35.1 pg (27.0-31.0); Mean Corpuscular Volume 97.9 fL (78.0-98.0); Mean Platelet Volume 7.2 fL (7.4-10.4); Platelet Count 561 thou/uL (130-400); RBC Distribution Width 19.9 % (11.5-14.5); Red Blood Cell (RBC) Count 3.36 mill/uL (4.70-6.10); White Blood Cell (WBC) Count 19.5 thou/uL (4.8-10.8)
[2019-08-14 06:42] LABS: ALT (SGPT) 12 U/L (8-55); AST (SGOT) 22 U/L (5-34); Albumin 4.2 g/dL (3.5-5.0); Alkaline Phosphatase 115 U/L (40-110); Anion Gap 14 mmol/L (10-20); BUN (Urea Nitrogen) 11 mg/dL (8.9-20.6); Bilirubin, Total 3.6 mg/dL (0.2-1.2); Calc. Creatinine Clearance 0 mL/min (70-130); Calcium 9.1 mg/dL (7.8-10.44); Carbon Dioxide 23 mmol/L (22-29); Chloride 105 mmol/L (98-107); Estimated GFR-MDRD Greater than 90; Globulin 3.7 g/dL (2.4-3.5); Glucose 113 mg/dL (70-105); Potassium 4.2 mmol/L (3.5-5.1); Protein, Total 7.9 g/dL (6.0-8.3); Sodium 138 mmol/L (136-145)
[2019-08-14] MEDS ORDERED: Ibuprofen 800 MG TAB PO PRN (07:47)
[2019-08-14] MEDS ORDERED: Bisacodyl 5 MG TAB PO PRN (07:48)
[2019-08-14] MEDS ORDERED: HYDROcodone/Acetaminophen 5/325 mg Tablet PO PRN (07:48)
[2019-08-14] MEDS ORDERED: Loperamide HCl 2 MG CAP PO PRN (07:48)
[2019-08-14] MEDS ORDERED: Calcium Carbonate 500 MG ChewTAB PO PRN (07:48)
[2019-08-14] MEDS ORDERED: Acetaminophen 325 MG TAB PO PRN (07:48)
[2019-08-14] MEDS ORDERED: Labetalol HCl 100 MG/20 ML VIAL SLOW IVP PRN (07:51)
[2019-08-14] MEDS ORDERED: Benzonatate 100 MG CAP PO PRN (07:51)
[2019-08-14] MEDS ORDERED: Docusate 100 MG CAP PO PRN (07:51)
[2019-08-14] MEDS ORDERED: Melatonin 3 MG TAB PO PRN (07:51)
[2019-08-14] MEDS ORDERED: Lidocaine 1% (PF) 30 ML VIAL ONE (08:39)
[2019-08-14] MEDS ORDERED: Morphine 4 MG/ML VIAL SLOW IVP SCH (08:45)
[2019-08-14 08:51] LABS: Troponin I 0.011 ng/mL (< 0.028)
[2019-08-14] MEDS ORDERED: Folic Acid 1 MG TAB PO SCH (09:00)
[2019-08-14] MEDS: Morphine 4 MG/ML VIAL SLOW IVP PRN ×4 (09:05→21:02)
[2019-08-14] MEDS: Ondansetron PF 4 MG/2 ML Vial IVP PRN ×2 (09:14→21:01)
[2019-08-14] MEDS: Potassium Chloride 20 MEQ in Lactated Ringer's 1,000 ML IV SCH ×3 (09:14→23:30)
--- NOTE | 2019-08-14 09:33 | RAD ---
PORTABLE CHEST 1 VIEW: Date: 08/14/2019 Time: 0808 hours HISTORY: Sickle cell crisis. COMPARISON: 07/26/2019. FINDINGS: The heart size is normal. The lungs are expanded without lobar consolidation, pneumothoraces, vida p ulmonary edema, or pleural effusions. IMPRESSION: No acute process. POS: [facility]
[2019-08-14 09:52] VITALS: BMI 21.2
[2019-08-14] MEDS: Folic Acid 1 MG TAB PO SCH (10:12)
[2019-08-14] MEDS ORDERED: Sodium Chloride 0.9% 1,000 ML IV SCH ×2 (10:15)
--- NOTE | 2019-08-14 10:25 | OP ---
DATE OF PROCEDURE: 08/14/2019 PREPROCEDURE DIAGNOSES: 1. Priapism. 2. Sickle cell crisis. 3. History of sickle cell disease. 4. Possible sepsis. PROCEDURES PERFORMED: Corporal irrigation and phenylephrine administration. BRIEF HISTORY: Mr. Jerardo Steiner Jr is a pleasant 28-year-old male with a history of sickle cell disease, recurrent episodes of priapism and recurrent sickle cell crisis with recent crisis just over one month ago. The patient presents on this admission with left arm pain, chest pain, and priapism. The patient is admitted to the Medical Service. I have been consulted to evaluate the patient for priapism. The patient was previously seen in the Emergency Department today prior to admission by Dr. Sully Singleton. The patient there consented to corporal irrigation and phenylephrine administration, but this could not be completed due to patient compliance. I was consulted to evaluate the patient for corporal irrigation and phenylephrine administration. The patient has additional symptoms of left arm and chest pain as well as a markedly elevated white count at this admission. The patient admits to a degree of dehydration. He has not been doing any unusual physical activities and spent most of the day in the house yesterday, so did not have excessive solar exposure despite his dehydration complaint. At present time, he is thirsty and desires treatment for his priapism. He is continuing to complain of left arm and chest pain. The patient is desiring intervention for his priapism and wishes to have the corporal irrigation procedure completed. DESCRIPTION OF PROCEDURE: The patient was appropriately identified. Informed written consent was obtained previously in the Emergency Department. Operating on that consent, the patient has given consent to the procedure and has received 8 mg of morphine intravenously. The patient was sterilely prepped and draped using Betadine. A corporal penile block was performed using 20 mL of 1% plain lidocaine injected with a 27-gauge needle in circumferential fashion. The patient tolerated that portion of the procedure without difficulty. The patient after receiving 8 mg of morphine and adequate anesthesia was achieved, he was also placed on high-flow face mask oxygen, he had slight detumescence of the penis. At this point, we could see pulsatile filling of the penis as well. The patient's penis did not go flaccid and was tender on palpation. Due to this, we did go ahead and perform the irrigation as previously described. The patient underwent corporal body irrigation to only allow one needle to be placed despite 8 mg of morphine and a circumferential block. The patient was overall not cooperative with the procedure, though desiring intervention, he did not like the idea of needle irrigation. We did drain approximately 50 mL of blood from the patient's corporal body, irrigating with about 30 mL of sterile saline, applied 5 mL of phenylephrine . The patient did pull out the 16-gauge irrigation catheter prior to the application of pressure and developed small hematoma on the right corporal body. We applied pressure, applied gauze, and followed by Coban type dressing, the patient expressed general relief of his pain from the penis, did continue to have some pulsatile filling of the penis at the time of the procedure as well. At present time, he has a degree of easily to its side and the patient will be observed. We have other evaluations ongoing due to the patient's markedly elevated white count and left arm and chest pain. Job ID: [id number]
--- NOTE | 2019-08-14 10:43 | CON ---
DATE OF CONSULTATION: 08/14/2019 BRIEF HISTORY: Mr. Jerardo Steiner Junior is a very pleasant 28-year-old male, who suffers from sickle cell disease. Both of his parents have sickle cell trait, reportedly has sickle cell C disease. The patient is brought in through the emergency department today with a complaint of approximately 8 hours of priapism, which began at about 9:00 p.m. yesterday. The patient has had multiple prior priapism episodes including two requiring corporal irrigation. Jerardo was recently discharged from the [facility] after admission on 07/09/2019 for a sickle cell crisis. Appears to have ongoing difficulties with that and is presenting today again with chest pain, left-sided arm pain and a priapism event, which are all manifestations of ongoing sickle cell crisis. PAST MEDICAL HISTORY: 1. Sickle cell disease. 2. Recurrent priapism. PAST SURGICAL HISTORY: The patient has undergone prior corporal irrigations x2 for priapism. SOCIAL HISTORY: The patient is a cigarette smoker and has smoked some over the last 24 hours. He reports no alcohol consumption or drug use. He lives at home with his family and is ordinarily independent in his ambulation. REVIEW OF SYSTEMS: HEAD, EYES, EARS, NOSE, AND THROAT: No vision complaints. No upper respiratory infection complaints. NECK: Negative. No thyroid complaints or enlarged lymph nodes. PULMONARY: The patient does report chest pain and does not report a cough. CARDIAC: The patient is reporting chest pain and left-sided arm pain today. He has relative bradycardia in the emergency department on physical exam. GASTROINTESTINAL: The patient is complaining of nausea as well. GENITOURINARY: The patient has priapism complaint. He was circumcised apparently as a child. There are no testicular complaints. The patient is not reporting voiding complaints. He has not been making much in the way of urine, though apparently did urinate in the emergency department prior to my evaluation of him. There is no urinalysis for evaluation. MUSCULOSKELETAL: The patient is only complaining of left arm pain at present time. PHYSICAL EXAMINATION: VITAL SIGNS: The patient's pulse rate is relatively low at 54, respiratory rate 16, O2 saturation is at 96% on room air, and blood pressure 135/77. GENERAL: This is a pleasant, awake, alert, male. He is reporting left arm pain, chest pain, nausea, and severe penile discomfort, which he rates at 8/10. He reports some fluctuation in overall pain level. The patient does not report reduction in the overall degree of priapism since his attempted carpal irrigation in the emergency department. LUNGS: Clear to auscultation bilaterally. CARDIAC: There is bradycardiac, but regular rate. ABDOMEN: Soft. The patient has decreased bowel sounds. BACK: No flank discomfort. GENITOURINARY: The patient has a circumcised phallus, which is fully erect. There is a pulsatile inflow into the penis noted. Palpation of the corporal body erect and tender. EXTREMITIES: Appear within normal limits. I did not find any regular range of motion abnormalities of the patient's left arm despite the complaint of left arm pain. There are no IVs or other causes for left arm pain visible. The patient did have a blood draw from the left hand apparently sometime in his evaluation, however. Right upper extremity has a IV site accessed at the antecubital site. NEUROLOGIC: No cranial deficits are in evidence. The patient's gait was not assessed due to his degree of illness. PSYCHOLOGIC AND INSIGHT: The patient has reasonable insight. 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 Does not report narcotic use at home. LABORATORY STUDIES: The patient's white count markedly elevated at 19.5 with marked left shift of 13.6 neutrophils. Neutrophil distribution is 69.8%. The hematologic profile does show anemia with hematocrit of 32.9, hemoglobin 11.8. Serum chemistry showed electrolytes essentially within normal limits except for elevated glucose of 113, total bilirubin at 3.6, alkaline phosphatase elevated at 115. IMAGING DATA: A chest x-ray was obtained during my evaluation of the patient shows the patient with heart of normal size. Lungs are expanded without consolidation, pneumothorax, pulmonary edema, or pleural effusion. No evidence of acute process. A 12-lead EKG is obtained, which shows bradycardia. This is unchanged from his emergency room evaluation. There was degree of left ventricular hypertrophy as well. ASSESSMENT AND PLAN: 1. Sickle cell crisis with multiple sites involved including the patient's penis. 2. Priapism with initial failed attempt at corporal irrigation by ER personnel. We did go ahead and perform corporal irrigation. Please see separately dictated note. 3. Probable chest syndrome without evidence of abnormality on chest x-ray. Left arm pain also. The patient did undergo EKG evaluation, not suggesting an acute myocardial infarction. A troponin was obtained during the course of my evaluation of the patient and resulted in 0.011 based on the negative EKG. We will not obtain further troponins unless the patient has symptoms suggesting an acute myocardial infarction. 4. Long-term management of the patient's priapism. The patient basically has sickle cell disease with an acute priapism presentation of sickle cell crisis. He has other sites that are involved apparently with left arm and chest pain. At present time, symptomatic support with high-flow face mask oxygen and IV fluid resuscitation. The patient's admission BUN to creatinine ratio is 15 suggesting the need for adequate hydration. Unclear why the patient's white count is quite elevated. We did go ahead and obtain cultures to evaluate that. We will provide supportive care on this hospitalization. I am not recommending getting carried away with corporal irrigation in this patient unless the underlying medical condition as well at rest. At present time, supportive care seems indicated. The patient is instructed to further treat himself at home if he develops priapism episodes, which he is already doing by consumption of Gatorade when he notices that he is having this difficulty. Job ID: [id number]
[2019-08-14] MEDS: Hydroxyurea 500 MG CAP PO SCH ×2 (14:15→19:42)
--- NOTE | 2019-08-14 14:53 | PDOC.HHP ---
Hospitalist HPI - History of Present Illness Priapism History of Present Illness: Very pleasant 28-year-old gentleman with past medical history of sickle-cell disease with multiple episodes of priapism in the past, presents in sickle-cell crisis with priapism. Patient with recent hospitalization for sickle-cell crisis. Patient has been taking his chronic medications for sickle-cell including hydroxyurea and folic acid. Patient states that he is felt severely dehydrated and asks me multiple times to help him drink fluids. Patient has not been feeling sick over the past several days, denies any fever chills, denies any pain in the hands or toes. He has had some on-and-off crampy type pains in the muscles of his calf, arm, and in his back. Patient denies chest pain to me. Patient has negative cardiac enzymes with normal troponin level, there is no clinical concern for acute chest syndrome. Patient has a normal lactic acid level, afebrile, no source of infection. There is no clinical concerns for sepsis. Patient's labs are indicative of acute sickle-cell crisis with stress reactive leukocytosis, thrombocytopenia, anemia, and elevated reticulocyte count. The patient has been evaluated by urology for corporal irrigation. Hospitalist ROS - Review of Systems All other systems reviewed; all pertinent +/- noted in HPI/Subj - Medication Medications: Active Medications Generic Name Dose Route Start Last Admin Trade Name Freq PRN Reason Stop Dose Admin Folic Acid 1 mg 08/14/19 09:00 08/14/19 10:12 Folvite PO 1 mg DAILY LILLY Administration Hydroxyurea 500 mg 08/14/19 09:00 08/14/19 14:15 Hydrea PO Not Given BID LILLY Potassium Chloride 20 meq/ 1,010 mls @ 150 mls/hr 08/14/19 08:30 08/14/19 09: 14 Lactated Ringer's IV 1,010 mls .Q6H44M LILLY Administration Morphine Sulfate 4 mg 08/14/19 07:51 08/14/19 13:15 Morphine SLOW IVP 4 mg Q4H PRN Administration Moderate to Severe Pain (6-10) Ondansetron HCl 4 mg 08/14/19 07:48 08/14/19 09:14 Zofran IVP 4 mg Q6H PRN Administration Nausea/Vomiting Sodium Chloride 10 ml 08/14/19 09:00 08/14/19 09:16 Flush - Normal Saline IVF 10 ml Q12HR LILLY Administration Sodium Chloride 10 ml 08/14/19 08:08 08/14/19 09:16 Flush - Normal Saline IVF 10 ml PRN PRN Administration Saline Flush Hospitalist History - Past Medical History Source: patient, old records Heme/Onc: reports: Sickle cell disease - Past Surgical History Past Surgical History: reports: no pertinent history, Other (corporal irrigation for priapism in the past several times) - Family History Family History: reports: Other (sicle cells) - Social History Smoking Status: Current every day smoker Tobacco Type: cigarettes Alcohol: reports: None, Rare Drugs: reports: marijuana Living Situation: With Family Domestic Violence: Negative Activity level: independent ambulation - Exam General Appearance: NAD, awake alert Eye: PERRL, anicteric sclera ENT: normocephalic atraumatic, moist mucosa Neck: supple, symmetric, no lymphadenopathy Heart: RRR, no murmur, no gallops, no rubs, normal peripheral pulses Respiratory: CTAB, no wheezes, no rales, no ronchi, normal chest expansion, no tachypnea, normal percussion Gastrointestinal: soft, non-tender, non-distended, no guarding, no rigidity Gastrointestinal - other findings: : coban on penile shaft, persistent erection Extremities: no edema Skin: no lesions, no rashes Neurological: cranial nerve grossly intact, no focal deficits Musculoskeletal: no muscle wasting Psychiatric: A&O x 3 Hospitalist Results - Labs Result Diagrams: 08/14/19 06:09 08/14/19 06:09 Lab results: WBC 19.5 thou/uL (4.8-10.8) H 08/14/19 06:09 Hgb 11.8 g/dL (14.0-18.0) L 08/14/19 06:09 Hct 32.9 % (42.0-52.0) L 08/14/19 06:09 MCV 97.9 fL (78.0-98.0) 08/14/19 06:09 Plt Count 561 thou/uL (130-400) H 08/14/19 06:09 Neutrophils % 69.8 % (42.0-75.0) 08/14/19 06:09 Sodium 138 mmol/L (136-145) 08/14/19 06:09 Potassium 4.2 mmol/L (3.5-5.1) 08/14/19 06:09 Chloride 105 mmol/L (98-107) 08/14/19 06:09 Carbon Dioxide 23 mmol/L (22-29) 08/14/19 06:09 BUN 11 mg/dL (8.9-20.6) 08/14/19 06:09 Creatinine 0.71 mg/dL (0.7-1.3) 08/14/19 06:09 Glucose 113 mg/dL (70-105) H 08/14/19 06:09 Lactic Acid 1.4 mmol/L (0.5-2.2) 08/14/19 08:43 Calcium 9.1 mg/dL (7.8-10.44) 08/14/19 06:09 Total Bilirubin 3.6 mg/dL (0.2-1.2) H 08/14/19 06:09 AST 22 U/L (5-34) 08/14/19 06:09 ALT 12 U/L (8-55) 08/14/19 06:09 Alkaline Phosphatase 115 U/L (40-110) H 08/14/19 06:09 Troponin I 0.011 ng/mL (< 0.028) 08/14/19 06:10 Serum Total Protein 7.9 g/dL (6.0-8.3) 08/14/19 06:09 Albumin 4.2 g/dL (3.5-5.0) 08/14/19 06:09 - Radiology Interpretation Chest x-ray Status: image reviewed by ri Hospitalist H&P A/P - Problem (1) Priapism due to sickle cell disease Code(s): D57.1 - SICKLE-CELL DISEASE WITHOUT CRISIS; N48.32 - PRIAPISM DUE TO DISEASE CLASSIFIED ELSEWHERE Status: Acute (2) Muscle pain Code(s): M79.10 - MYALGIA, UNSPECIFIED SITE Status: Acute (3) Sickle cell anemia with crisis Code(s): D57.00 - HB-SS DISEASE WITH CRISIS, UNSPECIFIED Status: Acute (4) Sickle cell anemia Code(s): D57.1 - SICKLE-CELL DISEASE WITHOUT CRISIS Status: Chronic (5) Tobacco abuse Code(s): Z72.0 - TOBACCO USE Status: Acute (6) Tetrahydrocannabinol (THC) dependence Code(s): F12.20 - CANNABIS DEPENDENCE, UNCOMPLICATED Status: Acute - Plan Plan: Plan: admit to medical unit urology consultation, recommendations appreciated patient has undergone corporal irrigation, if this does not correct may require repeat under anesthesia IV pain control oral pain control IV fluid resuscitation supplemental oxygen continue hydroxyurea and folic acid patient has negative cardiac enzymes, no chest pain, no clinical suspicion for acute chest syndrome chest x-ray is clear patient does not have digit involvement, no concern for digit auto amputation at this time the patient has an elevated WBC count, this is stress reactive from sickle-cell with acute crisis, consistent with elevation in reticulocyte count, thrombocytosis, and anemia patient has a normal lactic acid, he is afebrile, there is no source of infection, there is no clinical concern for sepsis blood pressure control blood sugar control G.I. prophylaxis DVT prophylaxis
[2019-08-14 15:27] LABS: Bacteria/HPF None Seen HPF (None Seen); Bilirubin Negative (Negative); Blood, Urine Negative (Negative); Clarity Clear (Clear); Glucose, Urine (Dipstick) Normal (Negative); Leukocyte Negative Leu/uL (Negative); Nitrite Negative (Negative); Protein, Urine (Dipstick) Negative (Neg-Trace); RBC/HPF 0-3 HPF (0-3); Squamous Epithelial None Seen HPF (0-3); Urobilinogen Normal mg/dL (Less than 2); WBC/HPF 0-3 HPF (0-3)
[2019-08-14 15:28] LABS: Urine Culture Reflex No No
[2019-08-14] MEDS: Nicotine 14 MG PATCH TD SCH (17:28)
[2019-08-14] MEDS: HYDROcodone/Acetaminophen 10/325 mg Tablet PO PRN ×2 (19:35→23:38)
[2019-08-14] MEDS: diphenhydrAMINE 25 MG CAP PO PRN (21:01)
[2019-08-15] MEDS: Morphine 4 MG/ML VIAL SLOW IVP PRN ×4 (02:06→22:20)
[2019-08-15] MEDS: HYDROcodone/Acetaminophen 10/325 mg Tablet PO PRN ×2 (03:23→20:12)
[2019-08-15] MEDS: diphenhydrAMINE 25 MG CAP PO PRN ×2 (03:24→20:15)
[2019-08-15] MEDS: Potassium Chloride 20 MEQ in Lactated Ringer's 1,000 ML IV SCH ×4 (05:38→20:29)
[2019-08-15 06:11] LABS: Anion Gap 10 mmol/L (10-20); BUN (Urea Nitrogen) 7 mg/dL (8.9-20.6); Calc. Creatinine Clearance 150 mL/min (70-130); Calcium 8.3 mg/dL (7.8-10.44); Carbon Dioxide 26 mmol/L (22-29); Chloride 106 mmol/L (98-107); Estimated GFR-MDRD Greater than 90; Glucose 80 mg/dL (70-105); Potassium 3.8 mmol/L (3.5-5.1); Sodium 138 mmol/L (136-145)
[2019-08-15 06:13] LABS: Band 3 % (5-11); Hemoglobin 9.7 g/dL (14.0-18.0); Hypochromia SLIGHT = 6-15 cells (100X) (0-5/hpf); Lymphocytes 15 % (21-51); MDiff Complete? YES; Mean Corpuscular HGB CONC 33.6 g/dL (32.0-36.0); Mean Corpuscular Hemoglobin 33.9 pg (27.0-31.0); Mean Platelet Volume 7.5 fL (7.4-10.4); Monocytes 9 % (0-10); Neutrophil 73 % (42-75); Platelet Count 455 thou/uL (130-400); Platelet Morphology Comment Appears Adequate; RBC Distribution Width 20.1 % (11.5-14.5); Red Blood Cell (RBC) Count 2.85 mill/uL (4.70-6.10); White Blood Cell (WBC) Count 15.1 thou/uL (4.8-10.8)
[2019-08-15] MEDS: Folic Acid 1 MG TAB PO SCH (08:32)
[2019-08-15] MEDS: Hydroxyurea 500 MG CAP PO SCH ×2 (08:32→20:15)
--- NOTE | 2019-08-15 14:55 | PDOC.HOSPP ---
- Subjective Encounter Date: 08/15/19 Encounter Time: 09:20 Subjective: mild pain in his penis, no other aches or sob is ambulating in room - Objective Vital Signs & Weight: Vital Signs (12 hours) Temp Pulse Resp BP Pulse Ox 08/15/19 10:46 97.9 F 44 L 18 106/48 L 97 08/15/19 08:00 98.0 F 52 L 16 108/57 L 97 08/15/19 07:00 95 08/15/19 06:21 48 L 16 99 08/15/19 03:16 97.7 F 51 L 18 113/63 93 L Weight Weight 140 lb I&O: 08/14/19 08/15/19 08/16/19 06:59 06:59 06:59 Intake Total 6200 Output Total 2000 Balance 4200 Result Diagrams: 08/15/19 04:56 08/15/19 04:56 Hospitalist ROS - Medication Medications: Active Medications Generic Name Dose Route Start Last Admin Trade Name Freq PRN Reason Stop Dose Admin Hydrocodone Bitart/Acetaminophen 1 tab 08/14/19 16:15 08/15/19 03:23 Niles 10/325 PO 1 tab Q4H PRN Administration Moderate to Severe Pain (6-10) Diphenhydramine HCl 25 mg 08/14/19 07:51 08/15/19 03:24 Benadryl PO 25 mg Q6H PRN Administration Itching & Insomnia Folic Acid 1 mg 08/14/19 09:00 08/15/19 08:32 Folvite PO 1 mg DAILY LILLY Administration Hydroxyurea 500 mg 08/14/19 09:00 08/15/19 08:32 Hydrea PO 500 mg BID LILLY Administration Potassium Chloride 20 meq/ 1,010 mls @ 150 mls/hr 08/14/19 08:30 08/15/19 13: 22 Lactated Ringer's IV 1,010 mls .Q6H44M LILLY Administration Melatonin 3 mg 08/14/19 07:51 08/14/19 23:38 Melatonin PO 3 mg HS PRN Administration Insomnia Morphine Sulfate 4 mg 08/14/19 07:51 08/15/19 13:29 Morphine SLOW IVP 4 mg Q4H PRN Administration Moderate to Severe Pain (6-10) Nicotine 14 mg 08/14/19 16:15 08/14/19 17:28 Nicoderm Patch TD 14 mg Q24HR LILLY Administration Ondansetron HCl 4 mg 08/14/19 07:48 08/14/19 21:01 Zofran IVP 4 mg Q6H PRN Administration Nausea/Vomiting Sodium Chloride 10 ml 08/14/19 09:00 08/15/19 08:32 Flush - Normal Saline IVF Not Given Q12HR LILLY Sodium Chloride 10 ml 08/14/19 08:08 08/14/19 09:16 Flush - Normal Saline IVF 10 ml PRN PRN Administration Saline Flush - Exam General Appearance: awake alert Eye: PERRL, anicteric sclera ENT: no oropharyngeal lesions, moist mucosa Neck: supple, no JVD Heart: RRR, no murmur Respiratory: no wheezes, no rales Gastrointestinal: soft, non-tender, non-distended, normal bowel sounds Extremities: no cyanosis, no edema Neurological: cranial nerve grossly intact, no focal deficits Hosp A/P (1) Priapism due to sickle cell disease Code(s): D57.1 - SICKLE-CELL DISEASE WITHOUT CRISIS; N48.32 - PRIAPISM DUE TO DISEASE CLASSIFIED ELSEWHERE Status: Acute (2) Tetrahydrocannabinol (THC) dependence Code(s): F12.20 - CANNABIS DEPENDENCE, UNCOMPLICATED Status: Chronic (3) Tobacco abuse Code(s): Z72.0 - TOBACCO USE Status: Chronic (4) Sickle cell anemia Code(s): D57.1 - SICKLE-CELL DISEASE WITHOUT CRISIS Status: Chronic - Plan hemostable d/w , will need oxygen if he qualifies to prevent recurrent priapism counselled reg cessation of tobacco and thc abuse on hydrea, morphine prn,iv fluids d/w vocational case manager to see if he qualifies for oxygen
[2019-08-15] MEDS: Nicotine 14 MG PATCH TD SCH (18:25)
--- NOTE | 2019-08-15 19:08 | CON ---
DATE OF CONSULTATION: 08/15/2019 CHIEF COMPLAINT: 1. Recurrent priapism. 2. Cigarette smoking, not in remission. 3. Sickle cell disease. BRIEF HISTORY: Mr. Jerardo Steiner Junior is a very pleasant 28-year-old male with sickle cell disease and cigarette smoking, not in remission. Both of his parents have sickle cell trait, and reportedly he has sickle cell C disease. The patient was brought into the emergency department on 08/14/2019 with complaint of 8 hours of priapism which began around 9:00 p.m. on Thursday, 08/12. The patient developed priapism, which did not resolve on its own. He was admitted via the emergency department due to priapism and sickle cell disease. The patient had attempted corporal irrigation in the emergency department, which patient would not tolerate. I later performed a corporal irrigation on the hospital floor with circumferential block and benefit of 8 mg of morphine. He also had some difficulty with toleration of complete procedure for that but we did achieve detumescence. The patient admits to being a cigarette smoker at present, which is undoubtedly the cause of his recent bout of sickle cell crises. The patient was admitted just a month ago with a sickle cell crisis and the binding of carbon monoxide to his hemoglobin undoubtedly has contributed to his ongoing sickle cell issues. The patient and I had a long discussion today regarding cessation of cigarette smoking and using alternative nicotine products as he is nicotine addicted at this point. PHYSICAL EXAMINATION: VITAL SIGNS: Temperature is 97.9, pulse 44, respiratory rate 18, O2 saturations 97% on 3 L of O2 by nasal cannula. He was up to 99% on Venturi mask, which helped him greatly in reduction of his priapism. Current blood pressure is 106/48. HEAD, EYES, EARS, NOSE, AND THROAT: Extraocular movements are intact. Sclerae anicteric. Oropharynx is clear. NECK: Supple. LUNGS: Clear to auscultation bilaterally. The patient reports his chest pain and left arm pain have moderately improved. ABDOMEN: Soft and nontender. Bowel sounds can be heard. GENITOURINARY: The phallus is found in a flaccid state. The dressing was removed by the patient and shows no evidence of current bleeding. There is a very small hematoma on the right lateral aspect of the corporal shaft, which is normal after a corporal irrigation procedure. EXTREMITIES: Appear within normal limits. The patient is no longer reporting left arm pain. GENERAL: He remains on oxygen by nasal cannula, at the time of examination. ASSESSMENT AND PLAN: 1. Cigarette smoking, not in remission, is the cause of the patient's recurrent sickle cell episodes. We had a long discussion today lasting more than 10 minutes regarding cigarette smoking cessation. It would be preferable for him to use nicotine products if addicted than to smoke. The patient should never smoke. A lengthy discussion with him regarding house furnaces that are using natural gas and other sources of carbon monoxide should be strictly avoided in this patient. 2. Sickle cell disease with recurrent sickle cell crisis. The patient has received hydration, high-flow oxygen, which was helpful in his crisis and is doing reasonably better today. 3. Infectious disease concerns. White cell count has improved markedly today, down from 19,500 yesterday to 15.1 today. 4. No infectious sources yet been isolated. There was no growth to date on his two blood cultures. A urinalysis was obtained yesterday and showed no signs of active infection. This was set to react but there was no bacteria observed in the patient's urinalysis and therefore no culture done. 5. Discharge planning: From a genitourinary standpoint, the patient's penis is flaccid not had recurrent or stuttering priapism, would be appropriate for discharge home at present time. From a standpoint, this diagnosis does not require a clinic followup. The patient may follow up with me on a p.r.n. basis. As far as discharge medications, they are nonspecific, which would be beneficial to the patient other than a management plan for his nicotine addiction. Over 35 minutes of consultation, assessment time was spent in the evaluation of this patient, exclusive of cigarette smoking cessation counseling, which was over 10 minutes. Job ID: [id number]
[2019-08-16] MEDS: HYDROcodone/Acetaminophen 10/325 mg Tablet PO PRN ×2 (00:36→07:40)
[2019-08-16] MEDS: Morphine 4 MG/ML VIAL SLOW IVP PRN ×3 (02:43→10:51)
[2019-08-16] MEDS: Potassium Chloride 20 MEQ in Lactated Ringer's 1,000 ML IV SCH ×2 (03:38→10:48)
[2019-08-16] MEDS: Hydroxyurea 500 MG CAP PO SCH (07:42)
[2019-08-16] MEDS: Folic Acid 1 MG TAB PO SCH (07:42)
[2019-08-16 09:25] LABS: Mean Corpuscular HGB CONC 33.9 g/dL (32.0-36.0); Mean Corpuscular Hemoglobin 32.8 pg (27.0-31.0); Mean Corpuscular Volume 96.9 fL (78.0-98.0); Mean Platelet Volume 7.6 fL (7.4-10.4); Platelet Count 479 thou/uL (130-400); RBC Distribution Width 20.5 % (11.5-14.5); Red Blood Cell (RBC) Count 3.04 mill/uL (4.70-6.10); White Blood Cell (WBC) Count 10.9 thou/uL (4.8-10.8)
[2019-08-16 09:39] LABS: Anion Gap 10 mmol/L (10-20); BUN (Urea Nitrogen) 6 mg/dL (8.9-20.6); Calc. Creatinine Clearance 141 mL/min (70-130); Calcium 8.5 mg/dL (7.8-10.44); Carbon Dioxide 30 mmol/L (22-29); Chloride 104 mmol/L (98-107); Estimated GFR-MDRD Greater than 90; Glucose 80 mg/dL (70-105); Potassium 4.2 mmol/L (3.5-5.1); Sodium 140 mmol/L (136-145)
[2019-08-16 09:43] LABS: Band 2 % (5-11); Eosinophils 8 % (0-10); Hemoglobin C Crystals SLIGHT (None Seen); Lymphocytes 28 % (21-51); MDiff Complete? YES; Monocytes 4 % (0-10); Neutrophil 54 % (42-75); Platelet Morphology Comment Appears Increased; Polychromasia MODERATE = 3-4 cells (100X) (0-2/hpf); Reactive Lymphocytes 1 % (0-10); Target Cells SLIGHT = 2-5 cells (100X) (0-1/hpf)
[2019-08-16] MEDS ORDERED: Potassium Chloride 20 MEQ in Lactated Ringer's 1,000 ML IV SCH (10:45)
[2019-08-16 14:41] VITALS: BP 117/65; TEMP 98.1
--- NOTE | 2019-08-16 18:06 | DIS ---
DATE OF ADMISSION: 08/14/2019 DATE OF DISCHARGE: 08/16/2019 DISCHARGE DISPOSITION: To home. PRIMARY DISCHARGE DIAGNOSES: Sickle cell crisis, priapism, tobacco abuse, cannabis abuse, history of chronic sickle cell anemia. PROCEDURES DONE DURING HOSPITALIZATION: The patient has had corporal irrigation and phenylephrine administration for priapism, done by Dr. Edgar Cabrera on 2019. Hemoglobin and hematocrit of 10 and 29, platelet count 479, white count of 10. Admitting white count was 19. Retic count 7.6. BUN 6, creatinine 0.7. LFTs within normal limits. Total bilirubin was 3.6 on the day of admission. Albumin 4.2. Troponin x1 negative. UA was negative for any infection. DISCHARGE MEDICATIONS: 1. Hydroxyurea 500 mg twice daily. 2. Motrin 400 mg p.o. q.6 hourly p.r.n. 3. Folic acid 1 mg p.o. daily. ALLERGIES: ALLERGIC TO PENICILLIN. INPATIENT CONSULT: Dr. Edgar Cabrera for Urology. DISCHARGE PLAN: The patient to follow up with his primary care physician in 1 week. BRIEF COURSE DURING HOSPITALIZATION: The patient initially got admitted on the 13 of August with complaints of pain in his penis with painful erection. He has also had lower back pain. The patient has known history of sickle cell anemia. He has had one prior episode of priapism in the last 1 year. He has known history of tobacco abuse and marijuana abuse as well. He was evaluated by Dr. Edgar Cabrera in the ER for priapism and has had corporal irrigation and phenylephrine administration done to reduce the priapism. He was placed on oxygen along with IV fluids and morphine for pain. The patient has responded well to above measures. He was strongly counseled against smoking and using marijuana. In view of 2 episodes of priapism with the patient being 28 years old and the risk of having it again, the patient has had home oxygen arranged per Dr. Edgar Cabrera's advice. Prior to discharge, he is ambulating and eating well. His pain in his penis has completely resolved and is able to pass urine without any discomfort. Please note, I have seen and examined the patient on the day of discharge. Job ID: [id number] [facility]
== END 2019-08-16 14:46 | disposition home or self-care (01) | DRG 812 ==
LOC: ERS 04:13 → T4-A 08:19
PROVIDERS: ADMIT Internal Medicine; ATTEND Internal Medicine
PROC: 3E1N38Z Irrigation of Male Reproductive using Irrigating Substance, Percutaneous Approach (ICD-10-PCS; principal; 2019-08-14)
PROC: 8E0ZXY6 Isolation (ICD-10-PCS; 2019-08-14)
DX: D57.00 Hb-SS disease with crisis, unspecified (principal); N48.32 Priapism due to disease classified elsewhere; F17.210 Nicotine dependence, cigarettes, uncomplicated; E86.0 Dehydration; F12.20 Cannabis dependence, uncomplicated; Z79.899 Other long term (current) drug therapy; Z88.0 Allergy status to penicillin; Z88.1 Allergy status to other antibiotic agents
CPT/HCPCS: 36415; 71045; 80048; 80053; 81001; 83605; 84484; 85025; 85046; 87040; 93005; 93010; 96360; 96361; J2001; J2270; J2405; J3480; J7120; Q0163

== ENCOUNTER 2019-08-18 03:41 | Emergency (ER) | payer SELFPAY ==
[2019-08-18] MEDS ORDERED: Ondansetron PF 4 MG/2 ML Vial ONE (03:52)
[2019-08-18] MEDS ORDERED: Morphine 4 MG/ML VIAL ONE ×2 (03:52→05:16)
[2019-08-18] MEDS ORDERED: Lidocaine 1% (PF) 30 ML VIAL ONE (04:43)
[2019-08-18] MEDS ORDERED: PHENYLEPHRINE IV SCH (04:45)
[2019-08-18] MEDS ORDERED: PHENYLEPHRINE SC SCH (05:15)
[2019-08-18] MEDS ORDERED: Lorazepam 2 MG/ML VIAL ONE (05:28)
[2019-08-18] MEDS ORDERED: Promethazine HCl 25 MG/ML VIAL ONE (05:28)
[2019-08-18 05:31] LABS: Reticulocyte Count 6.1 % (0.5-1.5)
[2019-08-18 05:43] LABS: Band 10 % (5-11); Hemoglobin 9.6 g/dL (14.0-18.0); Lymphocytes 8 % (21-51); MDiff Complete? YES; Mean Corpuscular Hemoglobin 32.4 pg (27.0-31.0); Mean Corpuscular Volume 95.2 fL (78.0-98.0); Mean Platelet Volume 7.8 fL (7.4-10.4); Monocytes 11 % (0-10); Neutrophil 71 % (42-75); Platelet Count 463 thou/uL (130-400); Platelet Morphology Comment Appears Increased; RBC Distribution Width 20.4 % (11.5-14.5); Red Blood Cell (RBC) Count 2.98 mill/uL (4.70-6.10); White Blood Cell (WBC) Count 22.2 thou/uL (4.8-10.8)
--- NOTE | 2019-08-18 06:34 | CON ---
DATE OF CONSULTATION: 08/18/2019 REASON FOR CONSULTATION: Priapism. HISTORY OF PRESENT ILLNESS: Mr. Steiner is a 28-year-old male with history of sickle cell disease. Both of his parents have sickle cell trait. The patient has had multiple recurrent priapisms in the past. He has seen Dr. Chaudhry several times, most recently according to the record was May 2018. On 08/15/2019, the patient presented with 8 hours of priapism. He did not tolerate attempted irrigation at the bedside in the emergency department and was therefore admitted to the Hospitalist Service. Dr. Hernández performed corporal irrigation on the hospital floor, which the patient tolerated somewhat well, but eventually detumescence was achieved. He was sent home on oxygen, encouraged to maintain hydrated. The patient since then has mostly had detumescence, although he reports some intermittent slightly prolonged erections. He presented back to the emergency department today after being awoken from sleep with an erection for approximately 2 to 3 hours. This became painful and he presented back to the emergency department. He denies any cocaine or amphetamine use. He does smoke cigarettes. He has been placed on fluids in the emergency department and on nasal cannula oxygen. He had been given 4 mg of morphine at the time that I evaluated the patient. REVIEW OF SYSTEMS: Full 12-point review of systems was performed and is negative other than mentioned in HPI. PAST MEDICAL HISTORY: 1. Sickle cell trait. 2. Recurrent priapism. PAST SURGICAL HISTORY: None. FAMILY HISTORY: Sickle cell trait. SOCIAL HISTORY: The patient reports no alcohol. He does smoke cigarettes. No illicit drug use. ALLERGIES: AMOXICILLIN AND PENICILLINS. PHYSICAL EXAMINATION: VITAL SIGNS: Temperature 98.1, pulse 68, respirations 16, blood pressure 129/73, oxygen saturation 97% on 3 L nasal cannula. GENERAL: He is alert and oriented x3, in moderate distress and pain. HEENT: Normocephalic, atraumatic. CARDIOVASCULAR: Regular rate and rhythm. PULMONARY: Breathing unlabored. ABDOMEN: Soft, nontender/nondistended. No masses or organomegaly. No suprapubic tenderness to palpation. No CVA tenderness. GENITOURINARY: Circumcised penis, which is erect and painful to the touch. Testes palpably normal. Scrotum normal. EXTREMITIES: Warm and well perfused. No edema. NEUROLOGIC: No focal deficits. LABORATORY DATA: White count 22.2, hemoglobin 9.6, hematocrit 28.4, platelets 463. Sodium 140, potassium 4.2, chloride 104, bicarb 30, BUN 6, and creatinine 0.7. ASSESSMENT: A 28-year-old male with sickle cell disease and recurrent priapism. PLAN: I reviewed the natural history of priapism with the patient in detail at the bedside. The following procedure was performed. Under sterile conditions, the patient's penis was prepped and draped in the usual sterile fashion. Approximately 12 mL of 1% plain lidocaine was used to perform a ring penile nerve block as well as an anesthetic block at both the lateral corpora cavernosal injection sites on the patient's right and left side. At this point, we inserted a 14-gauge Angiocath and the needle was removed leaving the Jelco catheter in place. This was performed in the left corpora cavernosa. There was immediate return of ischemic dark blood. The patient's penis was squeezed to let this blood drain out. We also used a 50 mL Luer-Francisco syringe and connected it to the Angiocath and aspirated several times, then irrigated with some saline on that side as well. We did this until the blood appeared well oxygenated. On the patient's contralateral side, at the previously numbed the area, we injected a total of approximately 4 mL, 1 mL at a time of a 500 mcg/mL solution of phenylephrine. We left the Angiocath in place until there was no longer draining any blood and then the Angiocath was removed. A light Coban pressure dressing was placed around the patient's penis. He was observed in the emergency department for an additional 30 minutes and there was no return of priapism. They will continue to monitor him to ensure that there is no recurrence. He tolerated the procedure well. Regarding future plan, I discussed the importance of good compliance with his sickle cell disease medications including his hydroxyurea and folic acid. Also, discussed the importance of him using his nasal cannula oxygen at home given the fact that he has had two episodes of this over the past 3 to 4 days. ER precautions were discussed with the patient and he is well aware of these and understands. There is no need for followup with Urology at this time. The patient has seen Dr. Chaudhry several times in the past for recurrent priapism and can follow up with his primary urologist if necessary. Job ID: [id number]
[2019-08-18] MEDS ORDERED: HYDROcodone/Acetaminophen 5/325 mg Tablet ONE (06:37)
== END 2019-08-18 08:50 | disposition home or self-care (01) ==
LOC: ERS 03:41
DX: N48.30 Priapism, unspecified (principal); D57.1 Sickle-cell disease without crisis; F31.9 Bipolar disorder, unspecified; F20.9 Schizophrenia, unspecified; Z79.899 Other long term (current) drug therapy
CPT/HCPCS: 36415; 54220; 85025; 85046; 96374; 96375; 96376; J2001; J2060; J2270; J2370; J2405; J2550

== ENCOUNTER 2020-03-21 02:15 | Emergency (ER) | payer OTHER ==
[2020-03-21] MEDS ORDERED: Ketorolac Tromethamine 30 MG/ML VIAL ONE (02:53)
[2020-03-21 03:27] LABS: Reticulocyte Count 20.9 % (0.5-1.5)
[2020-03-21 03:36] LABS: ALT (SGPT) 17 U/L (8-55); AST (SGOT) 45 U/L (5-34); Albumin 4.1 g/dL (3.5-5.0); Alkaline Phosphatase 99 U/L (40-110); Anion Gap 14 mmol/L (10-20); BUN (Urea Nitrogen) 8 mg/dL (8.9-20.6); Calc. Creatinine Clearance 0 mL/min (70-130); Calcium 8.5 mg/dL (7.8-10.44); Carbon Dioxide 23 mmol/L (22-29); Chloride 106 mmol/L (98-107); Globulin 3.3 g/dL (2.4-3.5); Glucose 104 mg/dL (70-105); Potassium 4.2 mmol/L (3.5-5.1); Protein, Total 7.4 g/dL (6.0-8.3); Sodium 139 mmol/L (136-145)
[2020-03-21 04:00] LABS: Anisocytosis MODERATE=16-30 cells (100X) (0-5/hpf); Band 4 % (5-11); Eosinophils 4 % (0-10); Hemoglobin 7.9 g/dL (14.0-18.0); Lymphocytes 33 % (21-51); MDiff Complete? YES; Mean Corpuscular Hemoglobin 33.4 pg (27.0-31.0); Mean Corpuscular Volume 90.3 fL (78.0-98.0); Mean Platelet Volume 8.9 fL (7.4-10.4); Monocytes 14 % (0-10); Myelocyte 2 % (0-0); Neutrophil 42 % (42-75); Nucleated RBC 16 % (0); Platelet Count 275 thou/uL (130-400); Platelet Morphology Comment Appears Adequate; Polychromasia MODERATE = 3-4 cells (100X) (0-2/hpf); RBC Distribution Width 24.3 % (11.5-14.5); Red Blood Cell (RBC) Count 2.36 mill/uL (4.70-6.10); Reflex for Review?? NO; Sickle Cells MARKED = >16 cells (100X) (None Seen)
== END 2020-03-21 04:27 ==
LOC: ERS 02:15
DX: D57.1 Sickle-cell disease without crisis (principal); F17.200 Nicotine dependence, unspecified, uncomplicated
CPT/HCPCS: 80053; 85025; 85046; 96374; J1885

== ENCOUNTER 2020-05-03 02:55 | Emergency (ER) | payer OTHER, SELFPAY ==
[2020-05-03] MEDS ORDERED: Ketorolac Tromethamine 30 MG/ML VIAL ONE (03:56)
[2020-05-03 04:40] LABS: Reticulocyte Count 18.5 % (0.5-1.5)
[2020-05-03 04:55] LABS: Hemoglobin 7.9 g/dL (14.0-18.0); Mean Corpuscular HGB CONC 36.2 g/dL (32.0-36.0); Mean Corpuscular Hemoglobin 31.8 pg (27.0-31.0); Mean Corpuscular Volume 87.9 fL (78.0-98.0); Red Blood Cell (RBC) Count 2.49 mill/uL (4.70-6.10)
[2020-05-03 05:03] LABS: ALT (SGPT) 19 U/L (8-55); AST (SGOT) 51 U/L (5-34); Albumin 4.2 g/dL (3.5-5.0); Alkaline Phosphatase 85 U/L (40-110); Anion Gap 14 mmol/L (10-20); BUN (Urea Nitrogen) 8 mg/dL (8.9-20.6); Bilirubin, Total 11.6 mg/dL (0.2-1.2); Calc. Creatinine Clearance 0 mL/min (70-130); Calcium 8.5 mg/dL (7.8-10.44); Carbon Dioxide 21 mmol/L (22-29); Chloride 108 mmol/L (98-107); Globulin 3.2 g/dL (2.4-3.5); Glucose 91 mg/dL (70-105); Potassium 4.5 mmol/L (3.5-5.1); Protein, Total 7.4 g/dL (6.0-8.3); Sodium 138 mmol/L (136-145)
[2020-05-03 05:18] LABS: Band 5 % (5-11); Eosinophils 8 % (0-10); Lymphocytes 33 % (21-51); MDiff Complete? YES; Mean Platelet Volume 9.2 fL (7.4-10.4); Monocytes 11 % (0-10); Neutrophil 43 % (42-75); Nucleated RBC 1 % (0); Platelet Count 265 thou/uL (130-400); White Blood Cell (WBC) Count 14.1 thou/uL (4.8-10.8)
--- NOTE | 2020-05-03 07:58 | RAD ---
TWO VIEWS RIGHT ELBOW: DATE: 05/03/2020. PROVIDED CLINICAL HISTORY: Pain without injury. FINDINGS: There is no evidence for fracture or other acute osseous abnormality. If there is persistent clinica l concern, conservative management and followup imaging are advised. IMPRESSION: As above. POS: [facility]
== END 2020-05-03 05:19 ==
LOC: EEVIPCON 02:55 → ERS 02:55
DX: D57.00 Hb-SS disease with crisis, unspecified (principal); F17.200 Nicotine dependence, unspecified, uncomplicated
CPT/HCPCS: 36415; 80053; 85025; 85046; 96372; J1885